=== PATIENT | male | born 1995 | race Caucasian/White ===

== ENCOUNTER 2021-10-16 19:28 | Emergency (ER) | payer OTHER, SELFPAY ==
[2021-10-16 19:39] VITALS: BP 111/67; PULSE 119; RESP 16; TEMP 37.2; O2SAT 99
--- NOTE | 2021-10-16 20:13 | ED.URI ---
HPI - URI/Sore Throat General Chief Complaint: Headache Stated Complaint: Sinus Pain/Headache Time Seen by Provider: 10/16/21 20:08 Source: patient and RN notes reviewed Mode of arrival: ambulatory Limitations: no limitations History of Present Illness HPI Narrative: 25-year-old male presents concern for facial pressure, pain, sinus drainage, dental pain for more than 1 week. He reports a lesion inside of his right nasal passage. Reports he is a fentanyl user and snorts it through his right nostril. He reports using aspirin for pain relief. He denies fever, bodies, chills, sweats. MD elicited complaint: nasal congestion Related Data Home Medications Medication Instructions Recorded Confirmed clonidine HCl 0.1 mg PO PRN 10/16/21 10/16/21 gabapentin 300 mg PO 10/16/21 methadone 60 mg PO DAILY 10/16/21 10/16/21 ondansetron 4 mg PO PRN 10/16/21 10/16/21 ropinirole 0.5 mg PO DAILY PRN 10/16/21 10/16/21 Allergies Allergy/AdvReac Type Severity Reaction Status Date / Time No Known Allergies Allergy Verified 10/16/21 19:45 Review of Systems Review of Systems: CONSTITUTIONAL: Denies malaise. Denies reports chills, sweats, or fever. EYES: Denies visual changes, redness, or discharge. ENT: Reports rhinorrhea, congestion, sinus pain, dental pain, right nasal opacification. Denies otalgia and sore throat. CARDIOVASCULAR: Denies chest pain, palpitations, or edema. RESPIRATORY: Denies cough. Denies dyspnea. GASTROINTESTINAL: Denies abdominal pain, nausea, vomiting, diarrhea SKIN: Denies rash or itching. MUSCULOSKELETAL: Denies myalgia. NEUROLOGIC: Reports headache. All systems reviewed & are unremarkable except as noted in HPI and below PMFSH Comments At time of signature, agree with nursing past medical, surgical, social and family history. There is no relevant family history pertinent to the presenting complaint Exam Narrative: GENERAL: Nontoxic. And in no acute distress. HEAD: Normocephalic EYES: PERRLA, conjunctivae clear ENT: Nares clear, turbinates edematous and erythematous, purulent discharge, sinus tenderness, ulceration noted in the right nasal passage. Mucous membranes moist. TM pearly baird with dull light reflex bilaterally; no tragal tenderness. Oropharynx not erythematous without lesions. Tonsils not enlarged and without exudate, no drooling, no hoarseness, no trismus, uvula midline. NECK: Supple. No lymphadenopathy CHEST: Clear to auscultation, breath sounds equal. No wheezing, rhonchi, rales, or stridor. No respiratory distress, speaks in full sentences. HEART: Regular rate and rhythm. No murmur heard. SKIN: Warm, dry, no rash. NEURO: Alert and oriented x3. PSYCH: Normal mood and affect Course Course Emergency Course: Patient is aware of diagnosis, understands and agrees to treatment plan. Anticipatory guidance given. Patient agrees to follow-up as directed and is aware of reasons to seek care at the emergency department. Portions of this record may have been created with voice recognition software Level of Care: Express Care Visit Vital Signs Vital signs: Vital Signs Temperature 99 F 10/16/21 19:39 Pulse Rate 119 H 10/16/21 19:39 Respiratory Rate 16 10/16/21 19:39 Blood Pressure 111/67 10/16/21 19:39 Pulse Oximetry 99 10/16/21 19:39 Temperature 99 F 10/16/21 19:39 Pulse Rate 119 H 10/16/21 19:39 Respiratory Rate 16 10/16/21 19:39 Blood Pressure 111/67 10/16/21 19:39 Pulse Oximetry 99 10/16/21 19:39 Reviewed. MDM - URI/Sore Throat MDM Narrative Medical decision making narrative: Differential diagnosis considered: Deutsch virus, strep pharyngitis, allergic rhinitis, upper respiratory tract infection, sinusitis, rhinosinusitis, nasopharyngitis. viral pharyngitis, otitis media, otitis externa, pneumonia, bronchitis, viral cough syndrome, viral syndrome, and influenza. Exam findings show no acute concerns or changes; patient is non-toxic appearing and is in no distress.
== END 2021-10-16 20:27 | disposition home or self-care (01) ==
PROVIDERS: Emergency Provider Nurse Practitioner
DX: J01.90 Acute sinusitis, unspecified (principal); J34.89 Other specified disorders of nose and nasal sinuses
CPT/HCPCS: 99213; G0463

== ENCOUNTER 2021-10-26 10:28 | Emergency (ER) | payer OTHER, SELFPAY ==
[2021-10-26 10:32] VITALS: BP 157/79; PULSE 157; RESP 20; TEMP 37.8; O2SAT 97
--- NOTE | 2021-10-26 10:35 | ED.MALEGU ---
HPI - Male Genitourinary General Chief complaint: Urogenital-Male Stated complaint: poss uti Time Seen by Provider: 10/26/21 10:35 Source: patient Mode of arrival: ambulatory Limitations: no limitations History of Present Illness HPI Narrative: Mr. Bull is a 25 year old male patient presenting to the clinic today with c/o possible UTI. He reports he is having some decrease in urine output, frequency, and urgency x1 to 2 weeks. He has been taking some Azo to treat his symptoms. He also reports that he has a sore that he believes is infected in his nose or that he has a sinus infection. History of snorting fentanyl and has last snorted this morning. Heart rate 157 in the clinic however he denies any chest pain or shortness of breath. States that he is very anxious Related Data Home Medications Medication Instructions Recorded Confirmed clonidine HCl 0.1 mg tablet 0.1 mg PO PRN 10/16/21 10/16/21 gabapentin 300 mg capsule 300 mg PO 10/16/21 methadone 10 mg/mL oral concentrate 60 mg PO DAILY 10/16/21 10/16/21 ondansetron 4 mg disintegrating 4 mg PO PRN 10/16/21 10/16/21 tablet ropinirole 0.5 mg tablet 0.5 mg PO DAILY PRN Restless Leg(S) 10/16/21 10/16/21 Allergies Allergy/AdvReac Type Severity Reaction Status Date / Time No Known Allergies Allergy Verified 10/16/21 19:45 Review of Systems Review of Systems: Pertinent positives per HPI. Patient denies any fever, chills, rash, headache, visual changes, dizziness, cough, runny nose, sore throat, shortness of breath, chest pain, palpitations, nausea, vomiting, diarrhea, constipation, abdominal pain. PMFSH Comments At the time of my signature, I reviewed and agree with the nursing past medical, surgical, social, and family history. There is no relevant family history pertinent to the patient complaint. Exam Narrative: General: Well-developed, well nourished, in no apparent distress Head: Normocephalic, atraumatic Eyes: Pupils equally round and reactive to light bilaterally, EOM intact, sclera and conjunctive clear, no discharge, lids normal Ears: TMs intact and clear, ear canals clear, no drainage, grossly hearing normal. Nose: Nares patent, no discharge, large black scabbed over sore with moderate redness to the right septum, no sinus tenderness. Mouth: Oropharynx without lesions or masses, good dentition, MMM. Neck: Supple, trachea midline, no enlargement of anterior or posterior cervical nodes, no thyroid masses or goiter palpable. Cardio: Tachycardic, s1 and s2 normal, no murmur appreciated. Resp: Clear to auscultation bilaterally anteriorly and posteriorly, no rhonchi, rales, wheezing or rubs Abdomen: Soft, pliable, bowel sounds present in all quadrants, tender to palpation over the suprapubic area, no organomegly, no CVAT tenderness. Course Course Emergency Course: Portions of this record may have been created with voice recognition software. Level of Care: Express Care Visit Vital Signs Vital signs: Vital Signs Temperature 37.8 C H 10/26/21 10:32 Pulse Rate 157 H 10/26/21 10:32 Respiratory Rate 20 10/26/21 10:32 Blood Pressure 157/79 H 10/26/21 10:32 Pulse Oximetry 97 10/26/21 10:32 Oxygen Delivery Room Air 10/26/21 10:32 Temperature 37.8 C H 10/26/21 10:32 Pulse Rate 147 H 10/26/21 11:54 Respiratory Rate 20 10/26/21 11:54 Blood Pressure 157/79 H 10/26/21 10:32 Pulse Oximetry 93 10/26/21 11:54 Oxygen Delivery Room Air 10/26/21 10:32 Vital signs reviewed MDM - Male Genitourinary MDM Narrative Medical decision making narrative: At the time of visit patient is anxious. Heart rate is 157 however he denies any shortness of breath or chest pain. He has just snorted some fentanyl this morning prior to arrival. SPO2 97% on room air respirations even and nonlabored and does not appear to be incoherent. Reporting suprapubic pain with low urine output and urgency as well as a possible sinus infection.
[2021-10-26] MEDS: cefTRIAXone 1 GM, LIDOCAINE HCL 1% LOCAL INJ 2.1 ML IM (11:14)
[2021-10-26 11:54] VITALS: PULSE 147; RESP 20; O2SAT 93
== END 2021-10-26 11:55 | disposition home or self-care (01) ==
PROVIDERS: Emergency Provider Nurse Practitioner Family
DX: N30.00 Acute cystitis without hematuria (principal); J34.89 Other specified disorders of nose and nasal sinuses; F11.90 Opioid use, unspecified, uncomplicated
CPT/HCPCS: 87086; 96372; 99213; G0463; J0696

== ENCOUNTER 2025-04-24 11:00 | Emergency (ER) | payer OTHER, SELFPAY ==
[2025-04-24 11:15] VITALS: BP 105/70; PULSE 125; RESP 20; TEMP 37.1; O2SAT 97
--- NOTE | 2025-04-24 11:31 | ED.GENADULT ---
HPI - General Adult General Chief complaint: Unspecified Stated complaint: needs work note Time Seen by Provider: 04/24/25 11:15 Source: patient and RN notes reviewed Mode of arrival: ambulatory Limitations: no limitations History of Present Illness HPI narrative: 29-year-old male patient presents Express Care complaining need a work note to return to work. 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 Patient said he just recovered from upper respiratory infection throat about 10 days ago. Patient said symptoms started to rapidly resolve over the weekend, who has no more complaints of symptoms currently. Patient denies any significant past medical problems. Related Data Home Medications ?Medication ?Instructions ?Recorded ?Confirmed ?Last Taken ?Type clonidine HCl 0.1 mg tablet 0.1 mg PO PRN 10/16/21 10/16/21 Unknown History gabapentin 300 mg capsule 300 mg PO 10/16/21 Unknown History methadone 10 mg/mL oral concentrate 60 mg PO DAILY 10/16/21 10/16/21 Unknown History Allergies Allergy/AdvReac Type Severity Reaction Status Date / Time No Known Allergies Allergy Verified 04/24/25 11:15 Review of Systems Review of Systems: CONSTITUTIONAL: Denies fever, chills, or sweats. EYES: Denies visual changes, redness, or discharge. ENT: Denies rhinorrhea, congestion, sore throat, or otalgia. CARDIOVASCULAR: Denies chest pain, palpitations, or edema. RESPIRATORY: Denies cough or dyspnea. GASTROINTESTINAL: Denies abdominal pain, nausea, vomiting, or diarrhea. GENITOURINARY: Denies dysuria or hematuria. SKIN: Denies rash or itching. MUSCULOSKELETAL: Denies back pain, joint pain, or myalgia. NEUROLOGIC: Denies headache, numbness, or weakness. PSYCHIATRIC: Denies anxiety or depression. All other systems reviewed are negative, except as documented in HPI. PMFSH Comments At the time of my signature, I reviewed and agree with the nursing past medical, surgical, social, and family history. There is no relevant family history pertinent to the patient complaint. Exam Narrative: GENERAL: This is a well-nourished, well-developed adult, in no apparent distress. They are non ill-appearing, nontoxic appearing. HEAD: normocephalic, atraumatic. EYES: Sclera clear/white. Conjunctiva normal. Vision is grossly intact. Extraocular movements intact EARS: External ears normal, auditory canals clear and without drainage, TMs normal without perforation. Hearing grossly intact. NOSE: External nose normal with no obvious nasal discharge, nasal turbinates without redness, no rhinorrhea. THROAT: Mucous membranes moist, posterior pharynx erythemic without swelling. Uvula midline. NECK: Neck supple, non-tender without lymphadenopathy, masses or thyromegaly. CARDIOVASCULAR: Regular rate and rhythm without murmurs, gallops, or rubs. RESPIRATORY: Clear to auscultation. Breath sounds equal bilaterally. No wheezes, rales, or rhonchi. SKIN: warm, Dry, intact with no suspicious lesions or rash, good texture and turgor. NEURO: awake, alert, and oriented to person, place and time. There were no obvious focal neurologic abnormalities. EXTREMITIES: No joint tenderness, effusion, or edema noted. BACK: Nontender without deformity. No CVA tenderness. Course Course Emergency Course: Portions of this record may have been created with voice recognition software Level of Care: Express Care Visit Vital Signs Vital signs: Vital Signs Temperature 98.8 F 04/24/25 11:15 Pulse Rate 125 H 04/24/25 11:15 Respiratory Rate 20 04/24/25 11:15 Blood Pressure 105/70 04/24/25 11:15 Pulse Oximetry 97 04/24/25 11:15 Oxygen Delivery Room Air 04/24/25 11:15 Temperature 98.8 F 04/24/25 11:15 Pulse Rate 125 H 04/24/25 11:15 Respiratory Rate 20 04/24/25 11:15 Blood Pressure 105/70 04/24/25 11:15 Pulse Oximetry 97 04/24/25 11:15 Oxygen Delivery Room Air 04/24/25 11:15 Reviewed Medical Decision Making MDM Narrative Medical decision making narrative: Patient's throat appeared erythema, rapid strep was obtained and was negative. A throat culture is pending. Patient says he has no symptoms currently. Patient cleared to return to work. Discussed physical exam findings. Advised supportive measures and signs/symptoms to go to the ER. Pt is appropriate for outpt treatment and f/u. Vital Signs Vital Signs: Vital Signs Temperature 98.8 F 04/24/25 11:15 Pulse Rate 125 H 04/24/25 11:15 Respiratory Rate 20 04/24/25 11:15 Blood Pressure 105/70 04/24/25 11:15 Pulse Oximetry 97 04/24/25 11:15 Oxygen Delivery Room Air 04/24/25 11:15 Temperature 98.8 F 04/24/25 11:15 Pulse Rate 125 H 04/24/25 11:15 Respiratory Rate 20 04/24/25 11:15 Blood Pressure 105/70 04/24/25 11:15 Pulse Oximetry 97 04/24/25 11:15 Oxygen Delivery Room Air 04/24/25 11:15 Lab Data Labs: Lab Results 04/24/25 Range/Units 11:24 POC Grp A Strep Screen Negative (Negative) Critical Care Time Critical Care Time Critical Care Time: No Discharge Plan Discharge Clinical Impression: Encounter for wellness examination in adult Patient Disposition: Home Condition: Stable Instructions: Antibiotic Form, Normal Exam (ED) Additional Instructions: Your rapid strep was negative today. A throat culture is pending if it is positive for strep you will be contacted and started on appropriate antibiotics. Follow-up with PCP as needed in 3-5 days. Go to the ER for any serious concerns. Patient Language: Vincentian Prescriptions: No Action clonidine HCl 0.1 mg tablet 0.1 mg PO PRN gabapentin 300 mg capsule 300 mg PO methadone 10 mg/mL Concentrate 60 mg PO DAILY Follow-up/Referrals: PHYSICIAN,MILIEU COORDINATOR [Primary Care Provider, Internal Medicine] Stand Alone Forms: Work/School Release IP Time of Disposition: 11:36
[2025-04-24 11:52] LABS: EDSTREPNEGPOS1 Negative (Negative)
--- OUTSIDE RECORDS SUMMARY | 2025-04-24 13:04 | XMS_ITS | Encounter Summary ---
Author Organization [facility] Healthcare Address [address] [place] [address] Care Team Providers Care Insurance Attorney Name Role Phone Kalen Poe MD Primary Care Provider Kalen Poe MD Primary Care Provider Encounter Details Date Type Department Care Team (Late st Contact Info) Description 08/10/2024 Telephone [facility] Primary Care at [address] [place] [address] Kalen Poe MD [address] [facility] [address] [place] [address] Social History Tobacco Use Types Packs/Day Years Used Date Smoking Tobacco: Every Day Cigarettes 1 14.9 Started: 2010 Smokeless Tobacco: Never Alcohol Use Standard Drinks/Week Comments No 0 (1 standard drink = 0.6 oz pur e alcohol) PHQ-2 Answer Date Recorded PHQ-2 Total Score (If total score is 3 or more points, staff should administer the PHQ-9) 0 06/05/2022 Sex and Gender Information Value Date Recorded Sex Assigned at Not on file Legal 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 Gender Identity Male 11/14/2020 1:49 PM CDT Sexual Orientation Straight 11/14/2020 1: 49 PM CDT documented as of this encounter Miscellaneous Notes * Telephone Encounter - Jacinda Genao - 08/10/2024 3:56 PM CDT documented in this encounter Plan of Treatment Not on file documented as of this encounter Visit Diagnoses Not on filedocumented in this encounter Care Teams Insurance Attorney Relationship Specialty Start Date End Date Kalen Poe MD PCP - General Family Medicine 05/19/22 11/08/24 [place] [address] [place] [id number] PCP - General Family Medicine 11/09/24 documented as of this encounter
--- OUTSIDE RECORDS SUMMARY | 2025-04-24 13:04 | XMS_ITS | Clinical Summary ---
Author Organization [facility] Address [address] [place] [address] Care Team Providers Care Pattern Checker Name Role Phone Kalen Poe MD Primary Care Provider Allergies No known active allergies Medications ondansetron ODT (ZOFRAN-ODT) 4 mg disintegrating tabletIndications:O pioid use disorder,Opioid withdrawal (HCC) Take 1 tablet (4 mg total) by mouth every 8 (eight) hours as needed for nausea or vomiting 21 tablet 2 Active cloNIDine (CATAPRES) 0.1 mg tabletIndications:O pioid use disorder Take 1 tablet (0.1 mg total) by mouth 2 (two) times a day as needed (Cold sweats) 60 tablet 1 3 Active gabapentin (NEURONTIN) 300 mg capsuleIndications: Opioid use disorder TAKE 1 CAPSULE(300 MG) BY MOUTH TWICE DAILY 180 capsule 3 Active Active Problems Problem Noted Date Diagnosed Date Opioid use disorder 03/19/2021 Assessment & Plan (09/19/2021 12:34 PM CDT): - chronic, not well controlled - hx of opiate use disorder - has had withdrawals,past detox and rehab stays - has coexisting mental health disorders as well, anxiety/depression and mood disorder - no hx of IV drug use, only snorts - he has tried suboxone at treatment center - tried 2 mg and sent him into precipitated withdrawal - scared about it and does not want to try it - he is interested in doing methadone, has an appointment within 2 week at a facility - not interested in naltrexone - he is planning to taper down and go to withdrawals at home, will provide medication to support him - script sent in for Clonidine, Ropinirole and Gabapentin which he has used before - can also discuss about detox here at [facility] via the warm handoff program Assessment & Plan (03/20/2021 1:31 AM CDT): - chronic, not well controlled - hx of opiate use disorder - has had withdrawals, most recent over a month ago - received detox/rehab - has coexisting mental health disorders as well, anxiety/depression and mood disorder - no hx of IV drug use, only snorts - he has tried suboxone at treatment center - tried 2 mg and sent him into precipitated withdrawal - scare about it - he is interested in doing methadone - not interested in naltrexone - reports still has some symptoms, had done well while on gabapentin and clonidine - will provide short term refill but discussed these are used in withdrawal for short term and are not maintenance medications Current every day smoker 07/30/2020 Overview (07/30/2020): Social History Tobacco Use Smoking Status Current Every Day Smoker Packs/day: 1.00 Years: 10.00 Pack years: 10.00 Types: Cigarettes Start date: 2010 Smokeless Tobacco Never Used Assessment & Plan (07/30/2020 2:21 PM PERIANESTHESIA NURSE): Social History Tobacco Use Smoking Status Current Every Day Smoker Packs/day: 1.00 Years: 10.00 Pack years: 10.00 Types: Cigarettes Start date: 2010 Smokeless Tobacco Never Used - plans to quit but not at this time Cannabis abuse, daily use 07/30/2020 Assessment & Plan (07/30/2020 2:21 PM PERIANESTHESIA NURSE): - uses Cannabis daily basis - states it helps him with anxiety but wants to quit in near future Restless legs syndrome (RLS) 07/30/2020 Assessment & Plan (09/19/2021 12:35 PM CDT): - chronic condition, not well controlled - worse with opioid withdrawals - he has had tossing and turning in his sleep, temptation to move legs to feel better and over again - restart Ropinirole 1 mg - may benefit with an increase if not controlled - continue with current medication Assessment & Plan (03/19/2021 3:56 PM CDT): - chronic condition, stable, better controlled - he has had tossing and turning in his sleep, temptation to move legs to feel better and over again - currently on Ropinirole 1 mg - may benefit with an increase if not controlled - continue with current medication Assessment & Plan (07/30/2020 2:23 PM PERIANESTHESIA NURSE): - he has had tossing and turning in his sleep, temptation to move legs to feel better and over again - he was on Ropinirole 0.5mg nightly which was helping - requesting for refill, refill provided Anxiety and depression 07/30/2020 Assessment & Plan (03/20/2021 1:30 AM CDT): - chronic condition - not well controlled - coexisting substance use disorder - currently on Buspar 15mg BID, Wellbutrin 300 mg daily - no longer on Venalfaxine - on Seroquel 100 mg nightly from recent rehab -> decrease to 50mg nightly - continue with current therapy unless indicated otherwsie - follow up in 4-6 weeks Assessment & Plan (07/30/2020 2:31 PM PERIANESTHESIA NURSE): - some social anxiety - mild in severity , LOLY-7 questionnaire - uses THC and feels like it helps him relax - was on Buspar - felt like it did not help him much Annual physical exam 07/30/2020 Assessment & Plan (07/30/2020 2:51 PM PERIANESTHESIA NURSE): - Acute concerns: addressed in other visits - Mental health: no significant psychiatric/mental health conditions affecting her day to day functioning - Nutrition: Stressed importance of moderation in sodium/caffeine intake, saturated fat and cholesterol, caloric balance, sufficient intake of fresh fruits, vegetables - Exercise: Stressed the importance of regular exercise, goal would be Resolved Problems Problem Noted Date Diagnosed Date Resolved Date Opioid withdrawal 05/28/2017 07/30/2020 Immunizations Immunization Administration Dates Next Due DTaP 01/02/2003, 9,07/05/1998,04/30/1998,0 02/27/1998 HPV, Quadrivalent 01/01/2011 Hep A, Pediatric 08/27/2005,02/19/2005 Hep B, Adolescent or Pediatric 09/10/1998,1997 HiB 03/14/1999,07/05/1998,04/30/1998 ,02/27/1998 IPV 01/02/2003,03/14/1999,04/30/1998 ,02/27/1998 Influenza, Unspecified 06/05/2022(Deferr ed: Patient Refused),06/05/2022(Deferred: Patient Refused),03/01/2021(Deferred: Patient Refused),03/01/2020(Deferred: Patient Refused) MMR 01/02/2003,12/10/1998 Meningococcal MCV4P (Menactra) 12/26/2008 Tdap 11/25/2011,12/26/2008 Varicella 12/26/2008,12/10/1998 Medical History Medical History Date Comments GERD (gastroesophageal reflux disease) Anxiety Depression Substance abuse (HCC) Family History Medical History Relation Name Comments No Known Problems Father No Known Problems Mother Relation Name Status Comments Father Alive Mother Alive Social History Tobacco Use Types Packs/Day Years Used Date Smoking Tobacco: Every Day Cigarettes 1 14.9 Started: 2010 Smokeless Tobacco: Never Tobacco Cessation:Ready to Q uit: Not Asked; Counseling Given: Not Answered Alcohol Use Standard Drinks/Week Comments No 0 (1 standard drink = 0.6 oz pur e alcohol) PHQ-2 Answer Date Recorded PHQ-2 Total Score (If total score is 3 or more points, staff should administer the PHQ-9) 0 06/05/2022 Sex and Gender Information Value Date Recorded Sex Assigned at Not on file Legal Sex Male 10:07 AM PERIANESTHESIA NURSE Gender Identity Male 11/14/2020 1:49 PM CDT Sexual Orientation Straight 11/14/2020 1: 49 PM CDT Last Filed Vital Signs Vital Sign Reading Time Taken Comments Blood Pressure 116/72 06/05/2022 11:12 AM PERIANESTHESIA NURSE Pulse 118 06/05/2022 11:12 AM PERIANESTHESIA NURSE Temperature 38.1 C (100.6 F) 11/10/2020 11:21 PM CDT Respiratory Rate 16 06/05/2022 11:12 AM PERIANESTHESIA NURSE Oxygen Saturation 98% 06/05/2022 11:12 AM PERIANESTHESIA NURSE Inhaled Oxygen Concentration - - Weight 63.5 kg (140 lb) 06/05/2022 11:12 AM PERIANESTHESIA NURSE Height 180.3 cm (5' 10.98) 06/05/2022 11:12 AM PERIANESTHESIA NURSE Body Mass Index 19.53 06/05/2022 11:12 AM PERIANESTHESIA NURSE Plan of Treatment Health Maintenance Due Date Last Done Comments Hepatitis C Screening 1997 HPV Vaccines (2 - Male 2-dos e series) 07/04/2011 01/01/2011 Regular Well Visit/Exam 18-64 12/10/2015 Pneumococcal vaccine <65 (1 of 2 - PCV) 2016 DTaP/Tdap/Td Vaccine (8 - Td or Tdap) 11/24/2021 11/25/2011, 12/26/2008, 01/02/2003, Additional history exists Depression Screening 06/05/2023 06/05/2022, 03/19/2021, 07/30/2020 Influenza Vaccine (#1) 2025 Hepatitis B Screening Completed 09/10/1998, 998 Varicella Vaccines Completed 12/26/2008, 12/10/1998 Insurance [facility] Advance Directives For more information, please contact: [phone] * Full Code (Latest Code Status on File) Date Activated Date Inactivated Comments 05/26/2017 10:57 AM 05/28/2017 12:04 PM Care Teams Pattern Checker Relationship Specialty Start Date End Date Kalen Poe MD [address] [place] [address] PCP - General Family Medicine 11/09/24
--- OUTSIDE RECORDS SUMMARY | 2025-04-24 13:04 | XMS_ITS | Clinical Summary ---
Author Organization [facility] Address [address] [place] [address] Phone Care Team Providers Care Offset Press Assistant Name Role Phone Unavailable Primary Care Provider Unavailabl e Allergies No known active allergies Medications No known medications Active Problems No known active problems Social History Tobacco Use Types Packs/Day Years Used Date Smoking Tobacco: Never Assessed Sex and Gender Information Value Date Recorded Sex Assigned at Not on file Legal Sex Male 11:57 PM CDT Gender Identity Not on file Sexual Orientation Not on file Plan of Treatment Health Maintenance Due Date Last Done Comments Hepatitis C Virus (HCV) Screening 1997 Hepatitis B Immunization (3 of 3 - 3-dose series) 11/05/1998 09/10/1998, 01/15/1998 Human Papillomavirus (HPV) Immunization (2 - Male 2-dose series) 07/04/2011 01/01/2011 Influenza Immunization (#1) 2025 SARS-COV-2 Immunization ( season) 2025 Respiratory Syncytial Virus (RSV) Immunization (Adult) (1 - 1-dose 75+ series) 2072 Meningococcal Immunization (ACWY) Aged Out 12/26/2008 No longer eligible based on patient's age to complete this topic DTaP/Tdap/Td Immunization Discontinued 2011, 12/26/2008, 01/02/2003, Additional history exists TdaP Immunization Completed 11/25/2011, 12/26/2008 Pneumococcal Immunization Combined Aged Out No longer eligible based on patient's age to complete this topic Rotavirus Immunization Aged Out No lo nger eligible based on patient's age to complete this topic Insurance MEDICAID [employer]
== END 2025-04-24 11:41 | disposition home or self-care (01) ==
DX: Z02.79 Encounter for issue of other medical certificate (principal)
CPT/HCPCS: 87081; 87880; 99213; G0463